=== PATIENT | male | born 1980 | race Caucasian/White ===

== ENCOUNTER → 2017-01-29 | Day surgery (SDC) | payer OTHER ==
[~2017-01-29] MED LIST: NO MEDICATIONS
--- NOTE | ~2017-01-29 | OR ---
Unit #: [id number] #: [id number] Patient: MACKENZIE BUSH [id number] [address] [place], [place] [address] [id number] MR#: [id number] NAME: MACKEZNIE BUSH ROOM: Date of Procedure: 01/29/2017 Admission Date: 01/29/2017 Surgeon: Noel Whitlock Jr., M.D. : 1980 Attending Physician: Noel Whitlock Jr., M.D. Referring Physician: Noel Whitlock Jr., M.D. Primary Care Physician: Austin Rviera M.D. OPERATIVE REPORT INDICATION FOR PROCEDURE The patient is a 37-year-old white male, recently presented to the office complaining of a bulge with left inguinal hernia present. On examination, he was noted to have bilateral inguinal hernias. He is brought in this time for diagnostic laparoscopy with laparoscopic extraperitoneal inguinal hernia repairs. The patient understands the procedure including the risks, including that of recurrence, infection, bleeding, injury to the spermatic cord, and consents. PREOPERATIVE DIAGNOSIS Bilateral inguinal hernias. POSTOPERATIVE DIAGNOSIS Bilateral inguinal hernias, noting bilateral direct inguinal hernias with the left being larger than the right. ANESTHESIA General with endotracheal intubation. PROCEDURES PERFORMED Diagnostic laparoscopy with laparoscopic bilateral inguinal hernia repair extraperitoneally. DESCRIPTION OF PROCEDURE The patient was positioned in supine position. After being anesthetized and intubated, he was prepped and draped in routine fashion for bilateral inguinal hernia repairs. A small infraumbilical incision made approximately a 1.5 cm in length to the right of the lower midline and carried down through the subcutaneous tissue. The umbilicus and peritoneum were then lifted with a towel clip, and a Veress needle introduced into the abdomen. The abdomen was then inflated with CO2 gas. A 5-mm port was introduced in the abdomen followed by the camera. There was no evidence of any injury related to introduction of the port or the Veress needle. Brief intra-abdominal exploration was carried out. The patient was noted to have evidence of bilateral inguinal hernias with the left being larger than the right, both were direct in nature. The CO2 was then expressed from the abdomen. The port was removed and after removal of the port, the fascia in the rectus sheath to the right of the midline was then scored with a #11 blade and the rectus muscle was then retracted over lateral with the posterior rectus sheath being visualized. The dissecting balloon was then placed and under direct visualization, it was used to dissect out the preperitoneal space. It was then removed and the Unit #: [id number] #: [id number] Patient: MACKENZIE BUSH retracting device placed and CO2 started. The area was checked. There was scar tissue of the peritoneum to the anterior abdominal wall area in the area of the dissection. This was all freed up, and the peritoneum on the left was freed up of the spermatic cord as well as the vessels and also freed from the area of the Luis ligament. After the peritoneum was delivered back up cephalad, there was a small opening in the peritoneum, which was closed with the hemoclips. After the full dissection was performed over laterally allowing for space for the graft placement, similar dissection was performed on the right. Also on the right, there was likewise a small opening in the peritoneum which was closed with hemoclips. After this dissection was complete, the large 3D mesh was placed and tacked to the Luis ligament with 2 separate spiral tacks. There was excellent coverage of the defect and the peritoneum was then pulled down and then over the top of the mesh. Likewise on the left, mesh was placed 3D large and tacked to the Luis ligament with several spiral tacks and there was excellent coverage of the defect with good coverage even up on the anterior abdominal wall. The peritoneum was then pulled down below and over the top of the mesh. The CO2 was allowed to express from the space and there was excellent placement of the grafts bilaterally. The ports were then removed after the CO2 was expressed and the fascia in the larger port site near the umbilicus was approximated with [id number] 0 Vicryl suture. The wounds were irrigated. After hemostasis achieved with Bovie cautery, skin edges were approximated with stainless-steel skin clips and skin stapling device. The port sites were all injected with 0.5% Marcaine with epinephrine. Sterile dressings were applied externally. Estimated blood loss less than 50 mL. The patient received less than 1000 mL crystalloid solution during the procedure. Sponges and instruments counts were correct x3. No drains used. No complications. The patient was taken to the recovery room with stable vital signs in satisfactory condition. Dictated by... Noel Whitlock Jr., M.D. JMB/brice TD: 01/29/2017 18:40 JOB #: [id number] CC: Austin Rivera M.D. OPERATIVE REPORT Page 1 of 1 X Noel Whitlock MD X PROCEDURE OPERATIVE NOTE
== END | disposition home or self-care (01) ==
LOC: CSUR 05:23
DX: K40.20 Bilateral inguinal hernia, without obstruction or gangrene, not specified as recurrent (principal)
CPT/HCPCS: C1781; J0690; J1170; J2250; J2405; J2710; J3010